=== PATIENT | male | born 1995 ===

== ENCOUNTER 2020-07-15 00:59 | Emergency (ER) | payer SELFPAY | END 2020-07-15 02:02 | disposition home or self-care (01) | LOC: EMS 01:01 | DX: S01.112A Laceration without foreign body of left eyelid and periocular area, initial encounter (principal); F10.920 Alcohol use, unspecified with intoxication, uncomplicated; F12.90 Cannabis use, unspecified, uncomplicated; Y90.9 Presence of alcohol in blood, level not specified; V49.9XXA Car occupant (driver) (passenger) injured in unspecified traffic accident, initial encounter; Y93.89 Activity, other specified; Y92.488 Other paved roadways as the place of occurrence of the external cause; Y99.8 Other external cause status | CPT/HCPCS: 12013 ==